=== PATIENT | female | born 1995 | race Caucasian/White ===

== ENCOUNTER 2018-09-16 17:20 | Emergency (ER) | payer BC ==
[2018-09-16] MEDS ORDERED: NS 0.9% 1000 ML** 1,000 ML IV ONE (17:57)
[2018-09-16] MEDS ORDERED: methylPREDNISolone 125 MG* 2 ML VIAL IV ONE (17:57)
[2018-09-16] MEDS ORDERED: Famotidine IV * 20 MG in NS 0.9% 100 ML* 100 ML IVPB ONE (17:58)
--- NOTE | 2018-09-16 17:58 | ED ---
Allergic Reaction/Systemic - HPI Summary HPI Summary: A 23 y/o female brought in by [facility] ambulance presents to [facility] with a chief complaint of a possible allergic reaction to peanuts after eating a multigrain roll at around 16:45 today. At triage she rated her pain as a 0/10 in severity. She reports that she took Benadryl and her trouble breathing was getting worse so she used her epi pen. She has hives on her back but they are not itching. She is unsure if she was given steroids en route. Vital signs while in room - HR: 78 bpm, O2 Sat 100, BP 103/69. - History of Current Complaint Chief Complaint: EDAllergicReaction Time Seen by Provider: 09/16/18 17:38 Hx Obtained From: Patient Onset/Duration: Sudden Onset, Started minutes ago, Still Present Timing: Constant, Lasting Hours Severity Initially: Mild Severity Currently: Mild Pain Intensity: 0 Pain Scale Used: 0-10 Numeric Location: Diffuse Character: Hives Aggravating Factor(s): Nothing Alleviating Factor(s): Nothing Associated Signs And Symptoms: Positive: Difficulty Breathing - Allergies/Home Medications Allergies/Adverse Reactions: Allergies Allergy/AdvReac Type Severity Reaction Status Date / Time peanut Allergy Anaphylatic Verified 09/16/18 17:45 Shock Home Medications: Home Medications Fluticasone NASAL SPRAY 50MCG* [Flonase NASAL SPRAY 50MCG*] 1 spray MUCOUS_MEM DAILY 09/16/18 [History Confirmed 09/16/18] PMH/Surg Hx/FS Hx/Imm Hx Endocrine/Hematology History: Denies: Hx Diabetes Cardiovascular History: Denies: Hx Hypertension - Surgical History Surgery Procedure, Year, and Place: none reported. Infectious Disease History: No Infectious Disease History: Denies: Traveled Outside the [place] in Last 30 Days - Family History Known Family History: Positive: Cardiac Disease - Social History Alcohol Use: Occasionally Substance Use Type: Reports: None Smoking Status (MU): Never Smoked Tobacco Review of Systems Negative: Fever Positive: Shortness Of Breath - [employer] Positive: Other - positive: hives, possible peanut allergic reaction All Other Systems Reviewed And Are Negative: Yes Physical Exam - Summary Physical Exam Summary: GENERAL: Patient is a well-developed and nourished F who is lying comfortable in the stretcher. Patient is not in any acute respiratory distress. HEAD AND FACE: Normocephalic EYES: PERRLA, EOMI x 2. EARS: Hearing grossly intact. MOUTH: Oropharynx within normal limits, Uvula is midline and not swollen. NECK: Supple, trachea is midline, no adenopathy, no JVD, no carotid bruit. CHEST: Symmetric, no tenderness at palpation LUNGS: Clear to auscultation bilaterally. No wheezing or crackles. CVS: Regular rate and rhythm, S1 and S2 present, no murmurs or gallops appreciated. ABDOMEN: Soft, non-tender. Bowel sounds are normal. No abdominal abnormal pulsations. EXTREMITIES: Full ROM in all major joints, no edema, no cyanosis or clubbing. NEURO: Alert and oriented x 3. No acute neurological deficits. Speech is normal and follows commands. SKIN: Hives on back Triage Information Reviewed: Yes Vital Signs On Initial Exam: Initial Vitals Temp Pulse Resp BP Pulse Ox 98.3 F 55 15 115/75 100 09/16/18 17:25 09/16/18 17:25 09/16/18 17:25 09/16/18 17:25 09/16/18 17:25 Vital Signs Reviewed: Yes Diagnostics - Vital Signs Vital Signs Temp Pulse Resp BP Pulse Ox 09/16/18 17:25 98.3 F 55 15 115/75 100 - Laboratory Lab Statement: Any lab studies that have been ordered have been reviewed, and results considered in the medical decision making process. Allergic Reaction Course/Dx - Course Course Of Treatment: A 23 y/o female brought in by [facility] ambulance presents to [facility] with a chief complaint of a possible allergic reaction to peanuts after eating a multigrain roll at around 16:45 today. The physical exam revealed hives on back and uvula is midline and not swollen. In the ED course the patient was given solu-medrol IV and sodium chloride IV. The patient will be signed out to Dr. Wells upon shift change pending further evaluation. - Diagnoses Provider Diagnoses: Allergic reaction Discharge - Sign-Out/Discharge Documenting (check all that apply): Sign-Out Patient Signing out patient TO: Froilan Wells - pending further evaluation Patient Received Moderate/Deep Sedation with Procedure: No - Discharge Plan Condition: Stable Disposition: HOME Prescriptions: diPHENhydraMINE PO* [Benadryl PO 25 MG TAB*] 25 mg PO Q6H PRN #20 tab PRN Reason: Itching EPINEPHrine [Epipen 2-Johnnie] 0.3 mg IJ ONCE 1 Days auto.injct Famotidine TAB 40 MG(NF) [Pepcid TAB 40 MG(NF)] 40 mg PO DAILY #20 tab predniSONE [Prednisone 20 MG TAB] 40 mg PO DAILY #8 tablet Patient Education Materials: Urticaria (ED) Referrals: Jeanette Green MD [Primary Care Provider] - 3 Days (if not resolved) - Billing Disposition and Condition Condition: STABLE Disposition: Home - Attestation Statements Document Initiated by Scribe: Yes Documenting Scribe: Curt Ryan Provider For Whom Bekaibe is Documenting (Include Credential): Rex Soler MD Scribe Attestation: Curt Solorio scribed for Rex Soler MD on 09/17/18 at 0928. Scribe Documentation Reviewed: Yes Provider Attestation: The documentation as recorded by the Curt watts accurately reflects the service I personally performed and the decisions made by me, Cori Soler MD Status of Scribe Document: Viewed
--- NOTE | 2018-09-16 21:30 | ED ---
Progress - Progress Note Progress Note: The patient is a sign-out from Dr. Rex Soler MD, to Dr. Froilan Wells MD, at change of shift at 1900 pending disposition. At 2125, the patient is comfortable and ready to go home. She is diagnosed with urticaria and allergic reaction. She agrees with the plan for discharge. She is prescribed Benedryl, Epinephrine, Pepcid, and Prednisone, and she'll follow up with PCP. She agrees with this plan and understands the need for return to the ED if symptoms worsen. Re-Evaluation - Re-Evaluation First Eval Re-Evaluation Time: 21:25 Change: Improved Comment: The patient states she is doing well. She will be discharged home. Course/Dx - Course Course Of Treatment: A 23 y/o female brought in by [facility] ambulance presents to [facility] with a chief complaint of a possible allergic reaction to peanuts after eating a multigrain roll at around 16:45 today. The physical exam revealed hives on back and uvula is midline and not swollen. In the ED course the patient was given solu-medrol IV and sodium chloride IV. The patient will be signed out to Dr. Wells upon shift change pending further evaluation. - Diagnoses Provider Diagnoses: Allergic reaction Discharge - Sign-Out/Discharge Documenting (check all that apply): Patient Departure - Patient will be discharged home., Receiving Sign-Out Receiving patient FROM: Rex Soler - Patient is a sign-out from Dr. Cori Soler MD, to Dr. Froilan Wells MD, at change of shift at 1900 pending disposition. Patient Received Moderate/Deep Sedation with Procedure: No - Discharge Plan Condition: Stable Disposition: HOME Prescriptions: diPHENhydraMINE PO* [Benadryl PO 25 MG TAB*] 25 mg PO Q6H PRN #20 tab PRN Reason: Itching EPINEPHrine [Epipen 2-Johnnie] 0.3 mg IJ ONCE 1 Days auto.injct Famotidine TAB 40 MG(NF) [Pepcid TAB 40 MG(NF)] 40 mg PO DAILY #20 tab predniSONE [Prednisone 20 MG TAB] 40 mg PO DAILY #8 tablet Patient Education Materials: Urticaria (ED) Referrals: Jeanette Green MD [Primary Care Provider] - 3 Days (if not resolved) - Billing Disposition and Condition Condition: STABLE Disposition: Home - Attestation Statements Document Initiated by Senthil: Yes Documenting Scribe: Jennifer Min Provider For Whom Senthil is Documenting (Include Credential): Dr. Froilan Wells MD Scribe Attestation: IJennifer scribed for Dr. Froilan Wells MD on 09/17/18 at 0605. Scribe Documentation Reviewed: Yes Provider Attestation: The documentation as recorded by the Jennifer watts accurately reflects the service I personally performed and the decisions made by me, Dr. Froilan Wells MD Status of Scribe Document: Viewed
[2018-09-16 21:31] VITALS: BP 126/78
== END 2018-09-16 21:32 | disposition home or self-care (01) ==
LOC: ED 17:20
DX: T78.1XXA Other adverse food reactions, not elsewhere classified, initial encounter (principal); X58.XXXA Exposure to other specified factors, initial encounter; Y92.9 Unspecified place or not applicable
CPT/HCPCS: 96361; 96374; 96375; 99283; J2930